=== PATIENT | male | born 1985 | race African-American/Black ===

== ENCOUNTER 2022-01-22 08:51 | Emergency (ER) | payer BC ==
[~2022-01-22] VITALS: Ht 185.4 cm; Wt 98.0 kg
--- NOTE | 2022-01-22 09:27 | PHYS DOC ---
Past Medical History Past Surgical History: No Surgical History Adult General Chief Complaint Chief Complaint: NAUSEA/VOMITING/DIARRHEA HPI HPI The patient is a 37-year-old male who is otherwise healthy. He presents for 2 concerns. First, patient states that he was recently notified by a sexual partner that she tested positive for chlamydia and trichomoniasis. He denies any STD symptoms. Second, patient reports about 3 episodes of nonbloody vomiting and about 3 episodes of watery nonbloody diarrhea overnight. Symptoms have tapered to resolution at this point aside from very mild persistent epigastric discomfort, nonradiating. No associated fevers, hematemesis, hematochezia or melena, upper respiratory congestion/rhinorrhea, cough, sore throat, shortness of breath or chest pain of any kind, abdominal pain of any kind, flank pain, midline back pain, dysuria, hematuria, polyuria or oliguria, penile discharge, rashes or lesions in the groin, recent unusual travel, unusual foods, sick contacts with similar symptoms, recent antibiotic use. Patient is alert and pleasantly and appropriately interactive and in no acute distress with completely appropriate vital signs, ambulatory into his emergency department room with a narrow, steady gait. Review of Systems Review of Systems A 12 point review of systems was completed and was negative except where noted in HPI above. Current Medications Current Medications Current Medications Medications (Trade) Dose Ordered Sig/Alberto Start Time Stop Time Status Last Admin Dose Admin Azithromycin (Zithromax) 1,000 mg 1X ONCE 01/22/22 09:30 3 09:31 UNV Ceftriaxone Sodium (Rocephin Im) 500 mg 1X ONCE 01/22/22 09:30 3 09:31 UNV Metronidazole (Flagyl) 500 mg 1X ONCE 01/22/22 09:30 3 09:31 UNV Ondansetron HCl (Zofran Odt) 4 mg 1X ONCE 01/22/22 09:30 3 09:31 UNV Physical Exam Physical Exam 37-year-old male appearing nontoxic and in no acute distress. Head is normocephalic and atraumatic. Neck is supple and nontender. Oropharynx is mo ist. Lungs are clear to auscultation at all stations. There is a normal S1 and S2 without rubs or gallops and capillary refill is appropriate, less than 2 seconds globally. Abdomen is soft, nontender nondistended. Skin is warm and dry without cyanosis, clubbing or edema. Psychiatrically, the patient demonstrates appropriate mood and affect and is alert. Current Patient Data Vital Signs Vital Signs Date Time Temp Pulse Resp B/P (MAP) Pulse Ox O2 Delivery O2 Flow Rate FiO2 01/22/22 09:18 98.2 78 16 133/88 (103) 98 Room Air 98.2 EKG EKG [] Radiology/Procedures Radiology/Procedures [] Course & Med Decision Making Course & Med Decision Making Well-appearing 37-year-old male with reassuring vital signs and normal clinical examination (no abdominal tenderness elicitable on exam) presenting for STD exposure, asymptomatic, and secondarily also mentioning that he had some mild vomiting and diarrhea overnight, now resolved. No clear indication for extensive work-up for vomiting and diarrhea given resolution of symptoms and benign vital signs and exam. We will give some Zofran, some Pepcid and some Tylenol and will treat for gonorrhea, chlamydia and trichomoniasis. Will send urine GC/clam. Will discharge with some Zofran as well as the necessary course of Flagyl for trichomoniasis to follow-up closely with primary care. Patient understands that if he feels worse instead of better or develops other new symptoms of concern that he should return to the emergency department immediately for reevaluation. All questions are answered. Dragon Disclaimer Dragon Disclaimer This electronic medical record was generated, in whole or in part, using a voice recognition dictation system. Departure Departure Impression: Primary Impression: Acute gastroenteritis Additional Impression: STD exposure Disposition: 01 HOME / SELF CARE / HOMELESS Condition: IMPROVED Patient Instructions: Sexually Transmitted Disease, Viral Gastroenteritis Additional Instructions: Follow-up very closely with your primary care doctor in the office in the next 2 to 4 days for reevaluation of your symptoms and to discussion of next best steps in care. Drink plenty of fluids and get plenty of rest. You may take 4 mg Zofran tablet underneath your tongue (let it dissolve) every 8 hours as needed for nausea and/or vomiting. Take the Flagyl antibiotic as prescribed for the next 7 days to complete your STD exposure treatment. It is very important that you not drink alcohol while taking Flagyl as combining the two will most likely result in vomiting/stomach upset. Return to the emergency department right away for worsening symptoms of any kind or with any other new symptoms of concern. Scripts Metronidazole (METRONIDAZOLE) 500 Mg Tablet 1 TAB PO BID for 7 Days, #14 TAB 0 Refills Prov: ROWENA LEE MD 01/22/22 Ondansetron (ONDANSETRON ODT) 4 Mg Tab.rapdis 1 TAB PO PRN Q6-8HRS PRN for VOMITING, #10 TAB Prov: ROWENA LEE MD 01/22/22 Problem Qualifiers ROWENA LEE MD Jan 22, 2022 09:27
[2022-01-22] MEDS ORDERED: cefTRIAXone IM 500 MG VIAL. IM ONE (09:30)
[2022-01-22] MEDS ORDERED: ONDANSETRON ODT 4 MG TAB.RAPDIS. PO ONE (09:30)
[2022-01-22] MEDS ORDERED: ACETAMINOPHEN 500 MG TABLET PO ONE (09:30)
[2022-01-22] MEDS ORDERED: AZITHROMYCIN 250 MG TABLET. PO ONE (09:30)
[2022-01-22] MEDS ORDERED: metroNIDAZOLE 500 MG TABLET PO ONE (09:30)
[2022-01-22] MEDS ORDERED: FAMOTIDINE 20 MG TABLET. PO ONE (09:30)
[2022-01-22] MEDS ORDERED: ONDA4TAB12 PO (09:43)
[2022-01-22] MEDS ORDERED: METR-34 PO (09:43)
[2022-01-22 11:00] VITALS: BP 139/73
== END 2022-01-22 11:06 | disposition home or self-care (01) ==
LOC: ER 08:51
DX: K52.9 Noninfective gastroenteritis and colitis, unspecified (principal); Z20.2 Contact with and (suspected) exposure to infections with a predominantly sexual mode of transmission
CPT/HCPCS: 87491; 87591; 96372; 99285; J0696